=== PATIENT | male | born 1965 | race Caucasian/White ===

== ENCOUNTER 2019-08-27 01:14 | Emergency (ER) | payer SELFPAY ==
[~2019-08-27] VITALS: Ht 170.2 cm; Wt 88.0 kg
[2019-08-27 01:26] VITALS: BP 166/99
[2019-08-27] MEDS ORDERED: IBUPROFEN 600MG TABLET PO NR (02:37)
== END 2019-08-27 03:00 | disposition home or self-care (01) ==
LOC: ER 01:14
DX: J06.9 Acute upper respiratory infection, unspecified (principal); R51 Headache; Z98.890 Other specified postprocedural states; Z20.828 Contact with and (suspected) exposure to other viral communicable diseases
CPT/HCPCS: 87635; 99283